=== PATIENT | female | born 1955 | race Caucasian/White ===

== ENCOUNTER 2017-02-25 16:42 | Observation (INO) | payer OTHER ==
[2017-02-25] VITALS (10 sets, daily range): BP systolic 95–138; BP diastolic 52–60; PULSE 71–82; RESP 18–20; TEMP 96.4–99.2; O2SAT 96–100
[~2017-02-25] VITALS: Ht 172.1 cm; Wt 78.4 kg
[~2017-02-25 16:42] MED LIST: ADDE20 PO; ASPI-110 PO; BACT400T PO; BIOT1SUB SL; CALC600T25; CHOL5000 PO; CINN500T PO; CIPR-9 PO; CO Q100C9; ESTR42.5V VAGINAL; LISI10TA3; LORA-373 PO; LOVA40TA PO; MISCCAP32 PO; MULTTAB6; OXYB5TAB10 PO; PANT40TA3 PO; TIMO0.5S30 LEFT EYE
--- NOTE | 2017-02-25 16:59 | PD ---
HPI Chief Complaint: Chest Pain Time Seen by Provider: 16:51 Travel History International Travel<30 days: No Contact w/Intl Traveler<30days: No Traveled to known affect area: No History of Present Illness HPI 61-year-old female complains of chest pain. Patient states the pain started about 2 and half hours prior coming to the emergency room. Patient states the pain is pressure pain substernally with radiation to the back. Patient states that she has nausea and diaphoresis and shortness of breath with the pain. Patient denies any coughing congestion fever chills. Patient states the pain is not a surgical with exertion. Patient denies any history of CAD. Patient states that she has 2. Episodic chest pain which lasted an hour for the past 2 weeks. Patient has history hypertension and hep lipedema. Patient denies history diabetes. Patient is a smoker. Patient has family history of heart disease. On a scale of 1-10 the pain is a 2 now. Patient take aspirin 81 mg daily. Patient did not take aspirin today yet. PFSH Past Medical History Anxiety: Yes Cancer: Yes (hx of breast cancer left side and cervical cancer) Cardiovascular Problems: Yes High Cholesterol: Yes Chemotherapy: Yes (10 yrs ago) Diabetes: Yes (diet controlled) Patient Takes Glucophage: No Diminished Hearing: No Endocrine: No Gastrointestinal Disorders: Yes (hx of irritated esophagus with nausea and vomiting,relfux) Glaucoma: Yes (LEFT EYE) Genitourinary: Yes (hx of small bladder tumor) Hepatitis: No Hiatal Hernia: No Hypertension: Yes Immune Disorder: No Medical other: Yes (chronic uti) Musculoskeletal: No Neurologic: No Psychiatric: No Reproductive: No Respiratory: No Thyroid Disease: No Influenza Vaccination: Yes ?: Not Menopausal: Yes Past Surgical History Abdominal Surgery: Yes (lap eveline) AICD: No Appendectomy: Yes Body Medical Devices: artificial right eye Cardiac Surgery: No Cholecystectomy: Yes Ear Surgery: No Endocrine Surgery: No Eye Surgery: Yes (right eye removal with prostatic eye placed) Genitourinary Surgery: Yes (bladder lift X2 with tumors removed) Gynecologic Surgery: Yes (left breast mastectomy hysterectomy) Hysterectomy: Yes Joint Replacement: No Oral Surgery: Yes (t and a sinusotomy) Pacemaker: No Thoracic Surgery: No Tonsillectomy: Yes (T & A) Other Surgery: Yes Social History Alcohol Use: Yes (SOCIALLY) Tobacco Use: Yes (10 CIGS /DAY) Substance Use: No Allergies-Medications (Allergen,Severity, Reaction): Coded Allergies: Rocephin (Verified Allergy, Severe, Anaphylaxis, 02/25/17) Reported Meds & Prescriptions Reported Meds & Active Scripts Active Reported Biotin 5,000 Mcg Tab.rapdis 5,000 Mcg SL DAILY Hm Cinnamon (Cinnamon) 500 Mg Cap 1,000 Mg PO HS Protonix (Pantoprazole Sodium) 40 Mg Tab 40 Mg PO DAILY Adderall (Amphetamine-Dextroamphetamine) 20 Mg Tab 40 Mg PO DAILY Avoid late evening doses. Space doses at least 4 to 6 hours if more than once/day dosing. Ditropan (Oxybutynin Chloride) 5 Mg Tab 10 Mg PO Q12HR Timolol Opth Drops 0.5 % Soln 1 Drop LEFT EYE BID Lorazepam 0.5 Mg Tab 0.5 Mg PO Q8H PRN Co Q 10 (Coenzyme Q10 (Ubidecarenone)) 100 Mg Cap Vitamin D3 (Cholecalciferol) 5,000 Unit Cap 8,000 Units PO DAILY Calcium (Calcium Carbonate) 600 Mg Tab Aspirin 81 (Aspirin) 81 Mg Tabdr 81 Mg PO DAILY Lisinopril 10 Mg Tab 20 Review of Systems General / Constitutional: No: Fever Eyes: No: Visual changes HENT: No: Headaches Cardiovascular: Positive: Chest Pain or Discomfort Respiratory: No: Shortness of Breath Gastrointestinal: No: Abdominal Pain Genitourinary: No: Dysuria Musculoskeletal: No: Pain Skin: No Rash Neurologic: No: Weakness Psychiatric: No: Depression Endocrine: No: Polydipsia Hematologic/Lymphatic: No: Easy Bruising Physical Exam Narrative GENERAL: Well-nourished, well-developed patient. SKIN: Focused skin assessment warm/dry. HEAD: Normocephalic. EYES: No scleral icterus. No injection or drainage. NECK: Supple, trachea midline. No JVD or lymphadenopathy. CARDIOVASCULAR: Regular rate and rhythm without murmurs, gallops, or rubs. RESPIRATORY: Breath sounds equal bilaterally. No accessory muscle use. GASTROINTESTINAL: Abdomen soft, non-tender, nondistended. MUSCULOSKELETAL: No cyanosis, or edema. BACK: Nontender without obvious deformity. No CVA tenderness. Neurologic exam normal. Data Data Last Documented VS Vital Signs Date Time Temp Pulse Resp B/P Pulse Ox O2 Delivery O2 Flow Rate FiO2 02/25/17 17:04 78 18 119/53 97 Room Air 02/25/17 16:45 99.2 Orders Electrocardiogram (02/25/17 16:51) Complete Blood Count With Diff (02/25/17 16:51) Comprehensive Metabolic Panel (02/25/17 16:51) Creatine Kinase (Cpk) (02/25/17 16:51) Troponin I (02/25/17 16:51) Prothrombin Time / Inr (Pt) (02/25/17 16:51) Act Partial Throm Time (Ptt) (02/25/17 16:51) D-Dimer (02/25/17 16:51) Chest, Single Ap (02/25/17 16:51) Iv Access Insert/Monitor (02/25/17 16:51) Ecg Monitoring (02/25/17 16:51) Oximetry (02/25/17 16:51) Ct Pulmonary Angiogram (02/25/17 16:51) Aspirin (Aspirin) (02/25/17 17:30) Sodium Chlor 0.9% 1000 Ml Inj (Ns 1000 M (02/25/17 18:00) Iohexol 350 Inj (Omnipaque 350 Inj) (02/25/17 17:55) Admit Order (Ed Use Only) (02/25/17 18:18) Labs Laboratory Tests Test 02/25/17 16:50 White Blood Count 9.1 TH/MM3 Red Blood Count 4.29 MIL/MM3 Hemoglobin 12.9 GM/DL Hematocrit 38.2 % Mean Corpuscular Volume 89.0 FL Mean Corpuscular Hemoglobin 30.0 PG Mean Corpuscular Hemoglobin 33.7 % Concent Red Cell Distribution Width 12.7 % Platelet Count 443 TH/MM3 Mean Platelet Volume 7.9 FL Neutrophils (%) (Auto) 87.2 % Lymphocytes (%) (Auto) 7.7 % Monocytes (%) (Auto) 3.5 % Eosinophils (%) (Auto) 1.2 % Basophils (%) (Auto) 0.4 % Neutrophils # (Auto) 8.0 TH/MM3 Lymphocytes # (Auto) 0.7 TH/MM3 Monocytes # (Auto) 0.3 TH/MM3 Eosinophils # (Auto) 0.1 TH/MM3 Basophils # (Auto) 0.0 TH/MM3 CBC Comment DIFF FINAL Differential Comment Prothrombin Time 10.0 SEC Prothromb Time International 0.9 RATIO Ratio Activated Partial 23.1 SEC Thromboplast Time D-Dimer Quantitative (PE/DVT) 0.51 MG/L FEU Sodium Level 134 MEQ/L Potassium Level 3.9 MEQ/L Chloride Level 98 MEQ/L Carbon Dioxide Level 26.2 MEQ/L Anion Gap 10 MEQ/L Blood Urea Nitrogen 16 MG/DL Creatinine 0.70 MG/DL Estimat Glomerular Filtration 85 ML/MIN Rate Random Glucose 102 MG/DL Calcium Level 8.8 MG/DL Total Bilirubin 0.3 MG/DL Aspartate Amino Transf 54 U/L (AST/SGOT) Alanine Aminotransferase 66 U/L (ALT/SGPT) Alkaline Phosphatase 104 U/L Total Creatine Kinase 22 U/L Troponin I LESS THAN 0.02 NG/ML Total Protein 7.1 GM/DL Albumin 3.7 GM/DL [facility] Medical Decision Making Medical Screen Exam Complete: Yes Emergency Medical Condition: Yes Interpretation(s) 1658 PM. EKG shows sinus rhythm nonspecific ST-T wave change. Last Impressions Chest X-Ray 02/25/17 1651 Signed Impressions: Service Date/Time: February 17:16 - CONCLUSION: 1. No active disease. Surgical clips left axillary region. Himanshu Kang MD 1746 PM. CBC within normal limit. CMP within normal limit. AST 54. ALT 66. Cardiac enzymes are normal. D-dimer 0.51. [address] pulmonary angiogram negative for acute process. Differential Diagnosis Differential diagnosis including angina, ME, PE, pneumothorax. Narrative Course 61-year-old female with substernal chest pain. Diagnosis Primary Impression: Chest pain Qualified Code: R07.9 - Chest pain, unspecified type Dhaval Tirado MD February 25, 2017 16:58
[2017-02-25] MEDS ORDERED: PROT40TA PO (17:02)
[2017-02-25] MEDS ORDERED: BIOT50006 SL (17:04)
[2017-02-25] MEDS ORDERED: CINN500C12 PO (17:04)
[2017-02-25 17:12] LABS: CHLORIDE 98 MEQ/L (98-107); POTASSIUM 3.9 MEQ/L (3.5-5.1); SODIUM (NA) 134 MEQ/L (136-145)
[2017-02-25 17:16] LABS: ANION GAP 10 MEQ/L (5-15); BICARBONATE 26.2 MEQ/L (21.0-32.0); BLOOD UREA NITROGEN 16 MG/DL (7-18)
[2017-02-25 17:19] LABS: ALT (GPT) 66 U/L (10-53); AST (GOT) 54 U/L (15-37); BASOPHIL % 0.4 % (0.0-2.0); EOSINOPHIL # 0.1 TH/MM3 (0-0.4); EOSINOPHIL % 1.2 % (0.0-4.0); HEMATOCRIT 38.2 % (35.0-46.0); HEMO FLAGS DIFF FINAL; LYMPH % 7.7 % (9.0-44.0); LYMPHOCYTE # 0.7 TH/MM3 (1.0-4.8); MEAN CORPUSCULAR HGB CONC 33.7 % (32.0-36.0); MONO % 3.5 % (0.0-8.0); NEUT % 87.2 % (16.0-70.0); PLATELET COUNT 443 TH/MM3 (150-450); RED BLOOD COUNT 4.29 MIL/MM3 (4.00-5.30); RED CELL DISTRIBUTION WIDTH 12.7 % (11.6-17.2); WHITE BLOOD COUNT 9.1 TH/MM3 (4.0-11.0)
[2017-02-25 17:20] LABS: APTT (PATIENT) 23.1 SEC (24.3-30.1); GLOMERULAR FILTRATION RATE 85 ML/MIN (>89); INTERNATIONAL NORMALIZED RATIO 0.9 RATIO
[2017-02-25 17:21] LABS: TOTAL BILIRUBIN ADULT 0.3 MG/DL (0.2-1.0)
[2017-02-25 17:22] LABS: ALKALINE PHOSPHATASE 104 U/L (45-117)
--- NOTE | 2017-02-25 17:25 | RADHPO ---
EXAM DATE/TIME: 02/25/2017 17:16 [facility] COMPARISON: No previous studies available for comparison. INDICATIONS : Patient states she had chest pain this afternoon. MEDICAL HISTORY : None. SURGICAL HISTORY : None. ENCOUNTER: Initial ACUITY: 1 day PAIN SCORE: 4/10 LOCATION: Bilateral chest FINDINGS: A single view of the chest demonstrates the lungs to be symmetrically aerated without evidence of mas s, infiltrate or effusion. The cardiomediastinal contours are unremarkable. Osseous structures are intact. CONCLUSION: 1. No active disease. Surgical clips left axillary region. Himanshu Kang MD on February 25, 2017 at 17:23 Board Certified Radiologist. This report was verified electronically.
[2017-02-25 17:28] LABS: CREATINE KINASE 22 U/L (26-192)
[2017-02-25] MEDS ORDERED: ASPIRIN 325 MG TAB PO ONE (17:30)
[2017-02-25] MEDS ORDERED: IOHEXOL 350 MG/ML 10 ML VIAL (for RAD DIAG) IV ONE (17:55)
[2017-02-25] MEDS ORDERED: SODIUM CHLOR 0.9% 1000 ML INJ 1,000 ML IV ONE (18:00)
--- NOTE | 2017-02-25 18:07 | RADHPO ---
EXAM DATE/TIME: 02/25/2017 17:34 [facility] COMPARISON: No previous studies available for comparison. INDICATIONS : Substernal chest pain that radiates to back, shortness of breath. IV CONTRAST: 73 cc Omnipaque 350 (iohexol) IV RADIATION DOSE: 11.23 CTDIvol (mGy) MEDICAL HISTORY : Carcinoma, breast. Gastroesophageal reflux disease. Hypertension.Cervical cancer. SURGICAL HISTORY : Mastectomy, left. Cholecystectomy.Hysterectomy.Bladder surgery. ENCOUNTER: Initial ACUITY: 1 day PAIN SCALE: 5/10 LOCATION: substernal. TECHNIQUE: Volumetric scanning of the chest was performed using a pulmonary embolism protocol MIP images were re constructed. Using automated exposure control and adjustment of the mA and/or kV according to patien t size, radiation dose was kept as low as reasonably achievable to obtain optimal diagnostic quality images. FINDINGS: PULMONARY ARTERIES: No filling defects are seen in the pulmonary arteries through the segmental level. LUNGS: There is small focus of reticular infiltrate in the right upper lobe. PLEURAE: There is no pleural thickening or pleural effusion. MEDIASTINUM: There is good visualization of the great vessels of the middle mediastinum. No evidence of mediastin al or hilar adenopathy/mass. MUSCULOSKELETAL: Within normal limits for patient age. MISCELLANEOUS: The visualized upper abdominal organs demonstrate no acute abnormality. CONCLUSION: No evidence of pulmonary embolism. Payam Castañeda MD on February 25, 2017 at 18:02 Board Certified Radiologist. This report was verified electronically.
[2017-02-25] MEDS ORDERED: ACETAMINOPHEN 500 MG CPLT PO PRN (18:30)
[2017-02-25] MEDS ORDERED: ONDANSETRON HCL 4 MG/2 ML VIAL IV PUSH ONE (18:30)
[2017-02-25] MEDS ORDERED: SODIUM CHLORIDE 0.9% FLUSH 10 ML FLUSH IV FLUSH PRN (18:30)
[2017-02-25] MEDS ORDERED: ONDANSETRON HCL 4 MG/2 ML VIAL IV PRN (18:30)
[2017-02-25] MEDS ORDERED: MORPHINE SULFATE 4 MG/ML INJ IV PUSH ONE ×2 (18:30→21:00)
[2017-02-25 20:37] LABS: CREATINE KINASE 19 U/L (26-192)
[2017-02-25] MEDS: SODIUM CHLORIDE 0.9% FLUSH 10 ML FLUSH IV FLUSH SCH (21:00)
[2017-02-25] MEDS ORDERED: PANTOPRAZOLE SODIUM 40 MG VIAL IV PUSH ONE (21:00)
[2017-02-26] VITALS (7 sets, daily range): BP systolic 94–163; BP diastolic 43–79; PULSE 57–73; RESP 20; TEMP 97.4–98.2; O2SAT 96–100
[2017-02-26] MEDS ORDERED: SODIUM CHLOR 0.9% 1000 ML INJ 1,000 ML IV SCH
[2017-02-26] MEDS ORDERED: LORazepam 0.5 MG TAB PO ONE (00:30)
[2017-02-26] MEDS ORDERED: ALUMINUM/MAGNESIUM/SIMETH 30 ML CUP PO PRN (00:45)
[2017-02-26 01:00] LABS: CREATINE KINASE 16 U/L (26-192)
[2017-02-26] MEDS: MORPHINE SULFATE 4 MG/ML INJ IV PUSH PRN ×2 (01:02→08:58)
--- NOTE | 2017-02-26 07:51 | HHI.HP ---
[facility] Alison Bejarano MD Admission Diagnosis chest pain Diagnoses: (1) Chest pain Diagnosis: Principal (2) Hypertension Diagnosis: Secondary (3) Hyperlipidemia Diagnosis: Secondary (4) Diabetes Diagnosis: Secondary Travel History International Travel<30 Days: No Contact w/Intl Traveler <30 Da: No Traveled to Known Affected Are: No History of Present Illness Written by Michael Liang, acting as scribe for Dr. Douglas on 02/26/17 at 07: 44. 61-year-old female with known history of hypertension, hyperlipidemia , diet-controlled diabetes, history of breast cancer, history of bladder cancer , adult attention deficit disorder who presented to hospital because of chest discomfort. Patient indicates that she's been experiencing this discomfort for a few days now. She states that the discomfort is a pain scale of 8/10 on a pain scale that starts in the midsternal part of her chest radiating into her right scapular region. She indicates the pain can last anywhere from 2 minutes to 20 minutes. She states that sometimes the pain feels like there is something stuck in her mid sternal region and she gets an episode of nausea and vomiting and after she vomits the pain goes away. Episodic diaphoresis. Increased fatigue. Denies any shortness of breath, dyspnea, lightheadedness, dizziness. 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 Patient was evaluated by emergency physician and recommended observation in the chest pain center. Review of Systems Constitutional: DENIES: Diaphoretic episodes, Fatigue, Fever, Weight gain, Weight loss, Chills, Dizziness, Change in appetite, Night Sweats Eyes: COMPLAINS OF: Vision loss (right eye), DENIES: Blurred vision, Diplopia , Eye inflammation, Eye pain, Double Vision Ears, nose, mouth, throat: DENIES: Vertigo, Nasal discharge, Throat pain, Ear Pain, Running Nose, Sinus Pain Respiratory: DENIES: Apneas, Cough, Snoring, Wheezing, Hemoptysis, Sputum production, Shortness of breath Cardiovascular: COMPLAINS OF: Chest pain, DENIES: Palpitations, Syncope, Dyspnea on Exertion, Lower Extremity Edema, Orthopnea Gastrointestinal: COMPLAINS OF: Nausea, Vomiting, DENIES: Abdominal pain, Black stools, Bloody stools, Constipation, Diarrhea, Difficulty Swallowing, Anorexia Neurologic: DENIES: Abnormal gait, Headache, Localized weakness, Paresthesias, Seizures, Speech Problems, Tremor, Poor Balance Past Family Social History Past Medical History Hypertension Hyperlipidemia Diabetes History of bladder cancer History of breast cancer Glaucoma Anxiety Tobacco use Adult attention deficit disorder Past Surgical History Tonsillectomy Right eye removal with prosthetic Appendectomy Cholecystectomy Mastectomy Hysterectomy Bladder surgery TURBT Reported Medications Reported Meds & Active Scripts Active Reported Biotin 5,000 Mcg Tab.rapdis 5,000 Mcg SL DAILY Hm Cinnamon (Cinnamon) 500 Mg Cap 1,000 Mg PO HS Protonix (Pantoprazole Sodium) 40 Mg Tab 40 Mg PO DAILY Adderall (Amphetamine-Dextroamphetamine) 20 Mg Tab 40 Mg PO DAILY Avoid late evening doses. Space doses at least 4 to 6 hours if more than once/day dosing. Ditropan (Oxybutynin Chloride) 5 Mg Tab 10 Mg PO Q12HR Timolol Opth Drops 0.5 % Soln 1 Drop LEFT EYE BID Lorazepam 0.5 Mg Tab 0.5 Mg PO Q8H PRN Co Q 10 (Coenzyme Q10 (Ubidecarenone)) 100 Mg Cap Vitamin D3 (Cholecalciferol) 5,000 Unit Cap 8,000 Units PO DAILY Calcium (Calcium Carbonate) 600 Mg Tab Aspirin 81 (Aspirin) 81 Mg Tabdr 81 Mg PO DAILY Lisinopril 10 Mg Tab 20 Allergies: Coded Allergies: Rocephin (Verified Allergy, Severe, Anaphylaxis, 02/25/17) Family History Reviewed is significant for mother having coronary artery disease requiring stenting. Father from small cell carcinoma, mother from non- small cell carcinoma Social History Patient does continues smoke periodically. Proximal to 10 cigarettes a week. She has been smoking since she was 20 years old. She does drink alcohol probably one sixpack of beer a week. Denies any illicit drugs Physical Exam Vital Signs Vital Signs Date Time Temp Pulse Resp B/P Pulse Ox O2 Delivery O2 Flow Rate FiO2 02/25/17 23:45 96 02/25/17 23:15 96.4 71 20 105/55 99 5/25/17 23:14 71 02/25/17 23:00 82 20 110/58 96 02/25/17 21:00 72 20 95/52 98 02/25/17 20:15 20 99 02/25/17 20:00 77 20 114/55 96 02/25/17 18:58 100 02/25/17 18:51 18 02/25/17 18:20 82 18 128/59 100 Room Air 02/25/17 18:20 85 02/25/17 17:04 78 18 119/53 97 Room Air 02/25/17 16:50 79 100 Room Air 02/25/17 16:45 99.2 79 18 138/60 100 Physical Exam GENERAL: Well-developed, well-nourished, in no acute distress. alert and orientated HEENT: Head is normocephalic without any lesions or masses noted. Facial features are symmetric. Eyes: Left Pupil equal round reactive to light. Left pectoralis muscle is intact. There is still movement in the right eye prosthesis. Conjunctivae were clear. Oropharyngeal: Pharynx without any erythema edema. Tongue is midline without deviation. Buccal mucosa is moist without any masses or lesions NECK: Supple without any masses. Trachea midline no deviation. No JVD, no bruits are appreciated CARDIAC: Regular rhythm, regular rate. S1/S2 are heard. No murmurs gallops or rubs. LUNGS: Clear to auscultation bilaterally. No wheeze, rhonchi or rales. No use of accessory muscles on inspiration or expiration. ABDOMEN: Soft, nontender. Nondistended. Bowel sounds heard in all 4 quadrants. No organomegaly or masses. Negative rebound, negative guarding EXTREMITIES: No edema, pulses are equal bilaterally. No cyanosis or clubbing NEUROLOGY: Mood and affect appear appropriate. Cranial nerves II through XII grossly intact. Muscle strength 5/5 in upper and lower extremities bilaterally. Deep tendon reflexes are 2+ in upper and lower extremities bilaterally. Laboratory Laboratory Tests Test 02/25/17 02/25/17 02/26/17 16:50 20:00 00:21 White Blood Count 9.1 Red Blood Count 4.29 Hemoglobin 12.9 Hematocrit 38.2 Mean Corpuscular Volume 89.0 Mean Corpuscular Hemoglobin 30.0 Mean Corpuscular Hemoglobin 33.7 Concent Red Cell Distribution Width 12.7 Platelet Count 443 Mean Platelet Volume 7.9 Neutrophils (%) (Auto) 87.2 Lymphocytes (%) (Auto) 7.7 Monocytes (%) (Auto) 3.5 Eosinophils (%) (Auto) 1.2 Basophils (%) (Auto) 0.4 Neutrophils # (Auto) 8.0 Lymphocytes # (Auto) 0.7 Monocytes # (Auto) 0.3 Eosinophils # (Auto) 0.1 Basophils # (Auto) 0.0 CBC Comment DIFF FINAL Differential Comment Prothrombin Time 10.0 Prothromb Time International 0.9 Ratio Activated Partial 23.1 Thromboplast Time D-Dimer Quantitative (PE/DVT) 0.51 Sodium Level 134 Potassium Level 3.9 Chloride Level 98 Carbon Dioxide Level 26.2 Anion Gap 10 Blood Urea Nitrogen 16 Creatinine 0.70 Estimat Glomerular Filtration 85 Rate Random Glucose 102 Calcium Level 8.8 Total Bilirubin 0.3 Aspartate Amino Transf 54 (AST/SGOT) Alanine Aminotransferase 66 (ALT/SGPT) Alkaline Phosphatase 104 Total Creatine Kinase 22 19 16 Troponin I LESS THAN 0.02 LESS THAN 0.02 LESS THAN 0.02 Total Protein 7.1 Albumin 3.7 Result Diagram: 02/25/17164902/25/171649 Imaging Last Impressions Chest X-Ray 02/25/171650 Signed Impressions: Service Date/Time: February 17:16 - CONCLUSION: 1. No active disease. Surgical clips left axillary region. Himanshu Kang MD CT Angiography 02/25/171650 Signed Impressions: Service Date/Time: February 17:34 - CONCLUSION: No evidence of pulmonary embolism. Payam Castañeda MD Assessment and Plan Assessment and Plan Chest pain Patient with increased risk factors to include age, hypertension, hyperlipidemia, diabetes, tobacco use, family history heart disease Patient had been ruled out for acute coronary event with serial cardiac enzymes which are negative Serial EKG shows sinus rhythm without any changes We'll pursue stress test rule out any underlying ischemia Continue aspirin, oxygen, Continue telemetry Hypertension Patient blood pressure is on the low side at this time We will hold blood pressure medication Diabetes, diet controlled We'll resume diabetic diet after stress testing DVT prevention Low risk, early ambulation Discharge disposition Discharge home in stable condition Activity: Ad yonis. Diet: Healthy heart/diabetic diet Medications per medication reconciliation Follow-up primary medical doctor in one week Discussed Condition With This note was transcribed by [email or web address] Liang. I, Dr. Clyde Douglas personally performed the history, physical exam, and medical decision making; and confirmed the accuracy of the information in the transcribed note. Authenticated by Dr. Clyde oDuglas on 02/26/17 at 13:10. Problem Qualifiers (1) Chest pain: Qualified Code: R07.9 - Chest pain, unspecified type (2) Hypertension: Qualified Code: I15.9 - Secondary hypertension (3) Hyperlipidemia: Qualified Code: E78.5 - Hyperlipidemia, unspecified hyperlipidemia type (4) Diabetes: Qualified Code: E11.8 - Type 2 diabetes mellitus with complication, without long-term current use of insulin Michael Liang February 26, 2017 07:51 Clyde Douglas DO February 26, 2017 13:10
[2017-02-26] MEDS ORDERED: LORazepam 0.5 MG TAB PO PRN (08:00)
[2017-02-26] MEDS: SODIUM CHLORIDE 0.9% FLUSH 10 ML FLUSH IV FLUSH SCH (08:59)
[2017-02-26] MEDS ORDERED: PANTOPRAZOLE SOD 40 MG DELAYED RELEASE TAB PO SCH (09:00)
[2017-02-26] MEDS ORDERED: TIMOLOL MALEATE 0.5% OPHT SOLN 5 ML BTL LEFT EYE SCH (09:00)
[2017-02-26] MEDS ORDERED: ASPIRIN EC 81 MG TABEC PO SCH (09:00)
--- NOTE | 2017-02-26 12:27 | HHI.DCPOC ---
Discharge Care Plan Diagnosis: (1) Chest pain Goals to Promote Your Health * To prevent worsening of your condition and complications * To maintain your health at the optimal level Directions to Meet Your Goals Take your medications as prescribed Follow your dietary instruction Follow activity as directed Keep your appointments as scheduled Take your immunizations and boosters as scheduled If your symptoms worsen call your PCP, if no PCP go to Urgent Care Center or Emergency Room Smoking is Dangerous to Your Health. Avoid second hand smoke Call the 24-hour hour crisis hotline for domestic abuse at Michael Liang February 26, 2017 12:27
--- NOTE | 2017-02-26 12:49 | EKG ---
Date Performed: 02/25/2017 Time Performed: 23:54:32 PTAGE: 61 years EKG: Sinus rhythm . Low QRS voltages in precordial leads Borderline ECG NO PREVIOUS TRACING DOCTOR: Chucho Jones Interpretating Date/Time 02/26/2017 12:49:12
--- NOTE | 2017-02-26 12:50 | EKG ---
Date Performed: 02/25/2017 Time Performed: 20:07:18 PTAGE: 61 years EKG: Sinus rhythm Low QRS voltages in precordial leads Borderline ECG PREVIOUS TRACING : 02/25/2017 16.39 Since previous tracing, no significant change noted DOCTOR: Chucho Jones Interpretating Date/Time 02/26/2017 12:50:04
--- NOTE | 2017-02-26 12:52 | EKG ---
Date Performed: 02/25/2017 Time Performed: 16:39:36 PTAGE: 61 years EKG: Sinus rhythm Possible left atrial abnormality Low QRS voltages in precordial leads Borderline ECG PREVIOUS TRACING : 09/16/2010 09.51 Since previous tracing, no significant change noted DOCTOR: Chucho Jones Interpretating Date/Time 02/26/2017 12:51:07
--- NOTE | 2017-02-26 12:58 | TR ---
Date Performed: 02/26/2017 Time Performed: 11:29:03 DOCTOR: Chucho Jones DRUG LIST: CLINICAL HISTORY: REASON FOR TEST: Chest pain REASON FOR ENDING: Fatigue OBSERVATION: Arrhythmia: None Chest Pain: None CONCLUSION: Patient performed ADAMA protocol withTotal Exercise Time=10:04 Maximum EW=716 % Max HR Achieved=77.0% Maximum MJ=361/80, Testing stopped secondary to fatigue. was unable to acheive targ et HR even with adjusting protocol. During peak exercise patient was asymptomatic, quick upsloping ST segment. HR and BP apropriate respinse to exercise. Recovery period, HR and BP returned to baeseline COMMENTS: Patient exercised using the Adama protocol. No electrocardiographic changes were seen to suggest ischemia. Hemodynamic response to exercise was normal. No significant arrhythmia was prese nt.
[2017-02-26] MEDS ORDERED: CINNAMON 1000 MG PO SCH (21:00)
== END 2017-02-26 13:00 | disposition home or self-care (01) ==
LOC: PHED 16:42 → PHEDA 18:19 → PHEDH 22:21 → PH3B 23:08
PROVIDERS: ADMIT Hospitalist; ATTEND Hospitalist
DX: R07.89 Other chest pain (principal); R61 Generalized hyperhidrosis; R11.2 Nausea with vomiting, unspecified; I10 Essential (primary) hypertension; E11.9 Type 2 diabetes mellitus without complications; E78.5 Hyperlipidemia, unspecified; H40.9 Unspecified glaucoma; F41.9 Anxiety disorder, unspecified; Z85.3 Personal history of malignant neoplasm of breast; Z82.49 Family history of ischemic heart disease and other diseases of the circulatory system; F17.200 Nicotine dependence, unspecified, uncomplicated; Z85.41 Personal history of malignant neoplasm of cervix uteri; E78.00 Pure hypercholesterolemia, unspecified; Z85.51 Personal history of malignant neoplasm of bladder
CPT/HCPCS: 71010; 71275; 80053; 82550; 84484; 85025; 85379; 85610; 85730; 93005; 93017; 99285; C9113; G0378; J2270; J2405; J7030; Q9967

== ENCOUNTER → 2017-03-08 | Day surgery (SDC) | payer OTHER ==
--- NOTE | 2017-03-05 10:29 | TH ---
cc: PHUONG BOTELLO M.D. DATE: DATE OF : 1955 PROCEDURE TO BE PERFORMED Left breast reconstruction and revision including the removal and replacement of current implant, inferior capsulorrhaphies, reposition of the breast latissimus dorsi, fat injections, as well as re-augmentation. The right breast is going to undergo a circumvertical matching mastopexy. HISTORY OF PRESENT ILLNESS This is a 60-year-old female who underwent breast reconstruction back in July of last year. The patient had a complication that required a latissimus dorsi flap in November of this current year. She is ready to have some areas re-addressed due to significant asymmetry and deformity. PAST MEDICAL HISTORY 1. Borderline diabetes. 2. Chronic UTI. 3. High cholesterol. 4. Glaucoma. 5. 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 6. Cholecystectomy in 2002. 7. Hysterectomy in 2004. 8. Tonsillectomy and adenoidectomy as a child. 9. Appendectomy as a teenager. 10. Retropubic suspension of the bladder in the past as well. MEDICATIONS 1. Oxybutynin. 2. Pantoprazole. 3. Lisinopril. 4. Sulfamethoxazole. 5. . 6. Adderall. 7. Lorazepam. 8. Calcium and vitamin-D3. 9. Multivitamins. 10. CoQ10. 11. Cinnamon. 12. Biotin. 13. [place]-3. ALLERGIES 1. ROCEPHIN. 2. GEODON. SOCIAL HISTORY Unremarkable. PHYSICAL EXAMINATION GENERAL APPEARANCE: The patient is a well-developed female in no acute distress. Body habitus is within normal limits. There appear to be no deformities. Appears to have attention to grooming. HEENT: Conjunctiva and lids are within normal anatomical limits. The pupils are reactive to light and accommodation, size and symmetry. There is no evidence of exudate, hemorrhage, or vessel change. The external inspection of the ears and nose fails to demonstrate any pathology, scars, lesions, or masses. Nasal mucosa, septum, and turbinates appear to be well-hydrated as well as the lips and gums. No evidence of masses in the hypopharynx or submental area. CHEST: The patient shows no evidence of intercostal retractions. LUNGS: Clear to auscultation without any abnormal sounds or rubs. CARDIOVASCULAR: The patient has a normal heart rate and rhythm. There is no evidence of noted carotid bruits. Femoral pulses and pedal pulses in the extremities are also within normal limits. ABDOMEN: Soft with no evidence of masses or tenderness. Unable to palpate the liver or spleen. No evidence of hernia. MUSCULOSKELETAL: Appears to be reasonable range of motion of the head, neck, spine, ribs, pelvis, right upper extremity, left upper extremity, right lower extremity, and left lower extremity. The muscle strength and tone appears to be equal and within accepted limits. SKIN: There are no rashes, lesions, or ulcers on the trunk, back or extremities. NEUROLOGICAL: Examination is grossly normal. PSYCHIATRIC: The patient appears to have good orientation of time, place, and person. Does not appear to have any mood affects of depression, anxiety, or agitation. PLAN As above. MD XAVIER Serna/CHA /9:25 AM /10:19 AM
[~2017-03-08] MED LIST changes: +ACETAMINOPHEN 1000 MG/100 ML VIAL IV ONE; +ACETAMINOPHEN/HYDROcodone 325 MG/5 MG TAB ONE; +BACITRACIN IM FOR SOLN 50,000 UNIT VIAL ONE; -BACT400T PO; -BIOT1SUB SL; +BIOT50006 SL; +BUPIVACAINE/EPINEPHRINE 0.25% 50 ML VIAL ONE; +CINN500C12 PO; -CINN500T PO; -CIPR-9 PO; -ESTR42.5V VAGINAL; +GENTAMICIN SULFATE 80 MG/2 ML VIAL ONE; +KETOROLAC TROMETHAMINE 30 MG/ML (IVP) VIAL IV PUSH ONE; +LACTATED RINGER'S 1000 ML INJ 1,000 ML ONE; +LIDOCAINE 1%/EPINEPHrine 1:100,000 SOLN 20 ML VIAL ONE; -LOVA40TA PO; +MEPERIDINE HCL 25 MG/ML VIAL ONE; +MIDAZOLAM HCL 2 MG/2 ML VIAL ONE; -MISCCAP32 PO; -MULTTAB6; +ONDANSETRON HCL 4 MG/2 ML VIAL IV PUSH ONE; -PANT40TA3 PO; +PROPOFOL 200 MG/20 ML AMP IV ONE; +PROT40TA PO; +SODIUM CHLOR 0.9% 250 ML INJ 250 ML IV ONE; +SODIUM CHLORIDE 0.9% 20 ML VIAL ONE; +VANCOMYCIN HCL 1000 MG VIAL ONE; +ceFAZolin INJ 1,000 MG VIAL ONE
--- NOTE | 2017-03-08 09:47 | TN ---
cc: SAROJ CASH M.D. DATE OF SURGERY 03/08/2017 PREOPERATIVE DIAGNOSES 1. Status post left mastectomy with further reconstruction including latissimus dorsi that lead into shifting and deformity and asymmetry. 2. Ptotic right breast. 3. Changing lesion located on the center of the chest of about 2 cm. PROCEDURE 1. Revision reconstruction of the left breast including removal, replacement of implant due to internal finding rupture. Style 410 MX, volume 550, serial number [id number], placement of fat injections on the upper medial pole, lateral inferior capsulorrhaphies and flap revision. 2. Circumvertical mastopexy of the right breast. 3. Destruction and curettage of a vascular irritating lesion located on the right side of the chest, 2 cm in diameter. SURGEON Saroj Cash MD ANESTHESIA LMA general. ESTIMATED BLOOD LOSS Minimal. COMPLICATIONS None. PROCEDURE She was properly consented, marked, anesthetized, the skin sterilized with Betadine solution, sterile draping applied. Also utilized a total of 40 cc of 1% lidocaine and epinephrine in the areas including both breast frames as well as the abdomen. Out attention was directed to the left breast. Through a trapdoor incision the implant was removed. It was found that it had a rupture and therefore a new implant was introduced. The above volume and serial number has been described. Lateral inferior capsulorrhaphies were done utilizing 0-silk after copious irrigation with normal saline and antibiotic solution. I also have revised the excess of flap skin in order to smooth the area. Before reaugmenting, I harvested approximately 120 cc of fat suitable for injection of about 40. Those were placed in the upper inner quadrant of the left breast. I utilized blunt, small needles. The implant was introduced. The wounds was closed in multiple 2-0 Monocryl suture layers in this capsule, dermis and subcu. At this point attention was directed to the right breast where the patient was sat up. Tailor tack technique was done to best set the envelope. This was properly marked, the skin was deepithelialized and the vertical/horizontal component was closed utilizing 2-0 Monocryl suture, where as the NAC was set in a new anatomical position utilizing 2-0 PTFE in a pinwheel fashion and reinforced with 2-0 Quill. Prineo Dermabond was utilized for all the wounds and absorbent dressings and after that a snug brassiere. Destruction and curettage of a vascular irritating lesion located on the right side of the chest, 2 cm in diameter. Overall the patient tolerated the procedure well. She was awakened, extubated in the operating room and transferred back to the postanesthesia care unit in stable condition. No complications were appreciated. The patient tolerated the procedure fairly well. MD XAVIER Serna/KEDAR /9:10 AM /9:40 AM CHARLENE
== END | disposition home or self-care (01) ==
LOC: ESDC 06:04
PROVIDERS: ATTEND Plastic Surgery
DX: Z85.3 Personal history of malignant neoplasm of breast (principal); N64.81 Ptosis of breast; Z90.12 Acquired absence of left breast and nipple; N65.0 Deformity of reconstructed breast; D18.01 Hemangioma of skin and subcutaneous tissue
CPT/HCPCS: 00400; 00402; 17106; 19316; 19380; C1789; J0131; J0690; J1580; J1885; J2175; J2250; J2405; J3010; J3370; J7050; J7120

== ENCOUNTER 2017-11-11 08:15 | Emergency (ER) | payer OTHER ==
[~2017-11-11] VITALS: Ht 170.2 cm; Wt 78.0 kg
[~2017-11-11 08:15] MED LIST changes: -ACETAMINOPHEN 1000 MG/100 ML VIAL IV ONE; -ACETAMINOPHEN/HYDROcodone 325 MG/5 MG TAB ONE; -ASPI-110 PO; +ASPI1TAB57 PO; -BACITRACIN IM FOR SOLN 50,000 UNIT VIAL ONE; +BACT800T5 PO; -BUPIVACAINE/EPINEPHRINE 0.25% 50 ML VIAL ONE; -CALC600T25; +CALC600T5; +CINN1CAP PO; -CINN500C12 PO; -GENTAMICIN SULFATE 80 MG/2 ML VIAL ONE; -KETOROLAC TROMETHAMINE 30 MG/ML (IVP) VIAL IV PUSH ONE; -LACTATED RINGER'S 1000 ML INJ 1,000 ML ONE; -LIDOCAINE 1%/EPINEPHrine 1:100,000 SOLN 20 ML VIAL ONE; -LORA-373 PO; +LORA0.5T PO; -MEPERIDINE HCL 25 MG/ML VIAL ONE; -MIDAZOLAM HCL 2 MG/2 ML VIAL ONE; -ONDANSETRON HCL 4 MG/2 ML VIAL IV PUSH ONE; -OXYB5TAB10 PO; +OXYB5TAB8 PO; -PROPOFOL 200 MG/20 ML AMP IV ONE; -SODIUM CHLOR 0.9% 250 ML INJ 250 ML IV ONE; -SODIUM CHLORIDE 0.9% 20 ML VIAL ONE; -VANCOMYCIN HCL 1000 MG VIAL ONE; -ceFAZolin INJ 1,000 MG VIAL ONE
[2017-11-11 08:19] VITALS: BP 143/59; PULSE 89; RESP 18; TEMP 99.1; O2SAT 95
--- NOTE | 2017-11-11 08:42 | PD ---
HPI Chief Complaint: Cold / Flu Symptoms Time Seen by Provider: 08:24 Travel History International Travel<30 days: No Contact w/Intl Traveler<30days: No Traveled to known affect area: No History of Present Illness HPI This 62-year-old female is been sick since yesterday morning. She is having a persistent cough. He is bringing up some whitish phlegm. She is having congestion. She's having a very bad headache she rates as a 10. The headache is somewhat diffuse frontal areas. Not sure if she's had a fever. Been taking Tylenol and Advil without any relief. PFSH Past Medical History Anxiety: Yes Cancer: Yes (hx of breast cancer left side and cervical cancer) Cardiovascular Problems: Yes High Cholesterol: Yes Chemotherapy: Yes (10 yrs ago) Diabetes: Yes (diet controlled) Diminished Hearing: No Endocrine: No Gastrointestinal Disorders: Yes (hx of irritated esophagus with nausea and vomiting,relfux) Glaucoma: Yes (LEFT EYE) Genitourinary: Yes (hx of small bladder tumor) Hepatitis: No Hiatal Hernia: No Hypertension: Yes Immune Disorder: No Musculoskeletal: No Neurologic: No Psychiatric: No Reproductive: No Respiratory: No Thyroid Disease: No Menopausal: Yes Past Surgical History Abdominal Surgery: Yes (lap eveline) AICD: No Appendectomy: Yes Body Medical Devices: artificial right eye Cardiac Surgery: No Cholecystectomy: Yes Ear Surgery: No Endocrine Surgery: No Eye Surgery: Yes (right eye removal with prostatic eye placed) Genitourinary Surgery: Yes (bladder lift X2 with tumors removed) Gynecologic Surgery: Yes (left breast mastectomy hysterectomy) Hysterectomy: Yes Joint Replacement: No Oral Surgery: Yes (t and a sinusotomy) Pacemaker: No Thoracic Surgery: No Tonsillectomy: Yes (T & A) Other Surgery: Yes Social History Alcohol Use: Yes (SOCIALLY) Tobacco Use: Yes (10 CIGS /DAY) Substance Use: No Allergies-Medications (Allergen,Severity, Reaction): Coded Allergies: ceftriaxone (Unverified Allergy, Severe, Anaphylaxis, 11/11/17) ziprasidone (Verified Allergy, Severe, tardive dyskynesia, 11/11/17) Reported Meds & Prescriptions Reported Meds & Active Scripts Active Tamiflu (Oseltamivir Phosphate) 75 Mg Cap 75 Mg PO BID 5 Days Bactrim DS (Sulfamethoxazole-Trimethoprim) 800-160 Mg Tab 1 Tab PO DAILY Reported Fenofibrate 145 Mg Tab 145 Mg PO DAILY Biotin 5,000 Mcg Tab.rapdis 5,000 Mcg SL DAILY Hm Cinnamon (Cinnamon) 500 Mg Cap 1,000 Mg PO HS Protonix (Pantoprazole Sodium) 40 Mg Tab 40 Mg PO DAILY Adderall (Amphetamine-Dextroamphetamine) 20 Mg Tab 30 Mg PO DAILY Avoid late evening doses. Space doses at least 4 to 6 hours if more than once/day dosing. Ditropan (Oxybutynin Chloride) 5 Mg Tab 10 Mg PO Q12HR Timolol Opth Drops 0.5 % Soln 1 Drop LEFT EYE BID Lorazepam 0.5 Mg Tab 0.5 Mg PO Q8H PRN Co Q 10 (Coenzyme Q10 (Ubidecarenone)) 100 Mg Cap Vitamin D3 (Cholecalciferol) 5,000 Unit Cap 8,000 Units PO DAILY Calcium (Calcium Carbonate) 600 Mg Tab Aspirin 81 (Aspirin) 81 Mg Tabdr 81 Mg PO DAILY Lisinopril 10 Mg Tab 20 DAILY Review of Systems General / Constitutional: Positive: Chills Eyes: No: Drainage HENT: Positive: Headaches, Rhinitis, No: Sore Throat Cardiovascular: No: Chest Pain or Discomfort Respiratory: Positive: Cough, Shortness of Breath Gastrointestinal: Positive: Nausea, No: Vomiting Genitourinary: No: Frequency Musculoskeletal: Positive: Myalgias Skin: No Rash, No Itching Neurologic: No: Weakness, Dizziness Hematologic/Lymphatic: No: Easy Bruising Physical Exam Narrative GENERAL: Well-developed female SKIN: Focused skin assessment warm/dry. HEAD: Atraumatic. Normocephalic. EYES: Pupils equal and round. No scleral icterus. No injection or drainage. ENT: No nasal bleeding Mucous membranes pink and moist. There is some nasal drainage. She is tender over the maxillary and frontal sinuses NECK: Trachea midline. No JVD. CARDIOVASCULAR: Regular rate and rhythm. No murmur appreciated. RESPIRATORY: No accessory muscle use. There are scattered rhonchi Breath sounds equal bilaterally. GASTROINTESTINAL: Abdomen soft, non-tender, nondistended. Hepatic and splenic margins not palpable. MUSCULOSKELETAL: No obvious deformities. No clubbing. No cyanosis. No edema. NEUROLOGICAL: Awake and alert. No obvious cranial nerve deficits. Motor grossly within normal limits. Normal speech. PSYCHIATRIC: Appropriate mood and affect; insight and judgment normal. Data Data Last Documented VS Vital Signs Date Time Temp Pulse Resp B/P (MAP) Pulse Ox O2 Delivery O2 Flow Rate FiO2 11/11/17 09:44 82 20 120/55 (76) 99 Room Air 11/11/17 08:19 99.1 Orders Orders Complete Blood Count With Diff (11/11/17 08:36) Basic Metabolic Panel (Bmp) (11/11/17 08:36) Influenzae A/B Antigen (11/11/17 08:36) Chest, Single Ap (11/11/17 08:36) Ct Brain W/O Iv Contrast(Rout) (11/11/17 08:36) Sodium Chlor 0.9% 1000 Ml Inj (Ns 1000 M (11/11/17 08:45) Ondansetron Inj (Zofran Inj) (11/11/17 08:45) Morphine Inj (Morphine Inj) (11/11/17 08:45) Acetaminophen (Tylenol) (11/11/17 09:00) Albuterol-Ipratropium Neb (Duoneb Neb) (11/11/17 09:15) Potassium Chloride (Kcl) (11/11/17 09:30) Morphine Inj (Morphine Inj) (11/11/17 09:30) Oseltamivir (Tamiflu) (11/11/17 09:45) Labs Laboratory Tests Test 11/11/17 08:54 White Blood Count 8.6 TH/MM3 Red Blood Count 4.34 MIL/MM3 Hemoglobin 12.7 GM/DL Hematocrit 37.7 % Mean Corpuscular Volume 86.7 FL Mean Corpuscular Hemoglobin 29.2 PG Mean Corpuscular Hemoglobin Concent 33.7 % Red Cell Distribution Width 12.1 % Platelet Count 302 TH/MM3 Mean Platelet Volume 8.4 FL Neutrophils (%) (Auto) 86.1 % Lymphocytes (%) (Auto) 7.2 % Monocytes (%) (Auto) 5.6 % Eosinophils (%) (Auto) 0.7 % Basophils (%) (Auto) 0.4 % Neutrophils # (Auto) 7.4 TH/MM3 Lymphocytes # (Auto) 0.6 TH/MM3 Monocytes # (Auto) 0.5 TH/MM3 Eosinophils # (Auto) 0.1 TH/MM3 Basophils # (Auto) 0.0 TH/MM3 CBC Comment DIFF FINAL Differential Comment Blood Urea Nitrogen 12 MG/DL Creatinine 1.00 MG/DL Random Glucose 172 MG/DL Calcium Level 8.9 MG/DL Sodium Level 133 MEQ/L Potassium Level 3.4 MEQ/L Chloride Level 102 MEQ/L Carbon Dioxide Level 22.3 MEQ/L Anion Gap 9 MEQ/L Estimat Glomerular Filtration Rate 56 ML/MIN MDM Medical Decision Making Medical Screen Exam Complete: Yes Emergency Medical Condition: Yes Medical Record Reviewed: Yes Differential Diagnosis Differential includes sinusitis, pneumonia, influenza Narrative Course Tests for influenza is negative. Because of the severity of headache a CT scan was done and has been read as negative. White count is 8000. Chest x-ray is negative. Diagnosis is influenza her symptoms started within 48 hours and she will be started on Tamiflu Diagnosis Primary Impression: Influenza A Scripts [phenergan w codeine] No Conflict Check 5-10 ML PO Q4-6H for cough for 7 Days Prov: Setf Carrasquillo MD 11/11/17 Ondansetron Odt (Zofran Odt) 4 Mg Tab 4 MG SL Q6HR Y for Nausea/Vomiting, #30 TAB 0 Refills Prov: Stef Carrasquillo MD 11/11/17 Albuterol 18 GM Inh (Ventolin Hfa 18 GM Inh) 90 Mcg/Act Aer 2 PUFF INH Q4H Y for SHORTNESS OF BREATH, #1 INHALER 0 Refills Prov: Stef Carrasquillo MD 11/11/17 Oseltamivir (Tamiflu) 75 Mg Cap 75 MG PO BID for Mgmt Viral Infection for 5 Days, #10 CAP 0 Refills Prov: Stef Carrasquillo MD 11/11/17 Disposition: 01 DISCHARGE HOME Condition: Stable Stef Carrasquillo MD Nov 11, 2017 08:42
[2017-11-11] MEDS ORDERED: MORPHINE SULFATE 4 MG/ML INJ IM ONE (08:45)
[2017-11-11] MEDS ORDERED: ONDANSETRON HCL 4 MG/2 ML VIAL IV PUSH ONE (08:45)
[2017-11-11] MEDS ORDERED: SODIUM CHLOR 0.9% 1000 ML INJ 1,000 ML IV ONE (08:45)
[2017-11-11] MEDS ORDERED: ACETAMINOPHEN 325 MG TAB PO ONE (09:00)
[2017-11-11 09:01] LABS: AUTOMATED NEUTROPHIL # 7.4 TH/MM3 (1.8-7.7); BASOPHIL % 0.4 % (0.0-2.0); EOSINOPHIL # 0.1 TH/MM3 (0-0.4); EOSINOPHIL % 0.7 % (0.0-4.0); HEMATOCRIT 37.7 % (35.0-46.0); HEMOGLOBIN 12.7 GM/DL (11.6-15.3); LYMPH % 7.2 % (9.0-44.0); LYMPHOCYTE # 0.6 TH/MM3 (1.0-4.8); MEAN CELL VOLUME 86.7 FL (80.0-100.0); MEAN CORPUSCULAR HEMOGLOBIN 29.2 PG (27.0-34.0); MEAN CORPUSCULAR HGB CONC 33.7 % (32.0-36.0); MEAN PLATELET VOLUME 8.4 FL (7.0-11.0); MONO % 5.6 % (0.0-8.0); MONOCYTE # 0.5 TH/MM3 (0-0.9); NEUT % 86.1 % (16.0-70.0); PLATELET COUNT 302 TH/MM3 (150-450); RED BLOOD COUNT 4.34 MIL/MM3 (4.00-5.30); RED CELL DISTRIBUTION WIDTH 12.1 % (11.6-17.2); WHITE BLOOD COUNT 8.6 TH/MM3 (4.0-11.0)
[2017-11-11] MEDS ORDERED: FENO145T2 PO (09:08)
--- NOTE | 2017-11-11 09:09 | RADRPT ---
EXAM DATE/TIME: 11/11/2017 08:59 [facility] COMPARISON: No previous studies available for comparison. INDICATIONS : Cephalgia. RADIATION DOSE: 62.03 CTDIvol (mGy) MEDICAL HISTORY : Carcinoma, breast. Diabetes mellitus type 2. Hypertension.Cervical cancer. SURGICAL HISTORY : Mastectomy, left. Hysterectomy.Appendectomy.Cholecystectomy. Bladder lift. Right eye implant. ENCOUNTER: Initial ACUITY: 2 days PAIN SCALE: 10/10 LOCATION: cranial TECHNIQUE: Multiple contiguous axial images were obtained of the head. Using automated exposure control and adj ustment of the mA and/or kV according to patient size, radiation dose was kept as low as reasonably a chievable to obtain optimal diagnostic quality images. DICOM format image data is available electro nically for review and comparison. FINDINGS: CEREBRUM: The ventricles are normal for age. No evidence of midline shift, mass lesion, hemorrhage or acute in farction. No extra-axial fluid collections are seen. POSTERIOR FOSSA: The cerebellum and brainstem are intact. The 4th ventricle is midline. The cerebellopontine angle i s unremarkable. EXTRACRANIAL: The visualized portion of the orbits is intact. SKULL: The calvaria is intact. No evidence of skull fracture. CONCLUSION: Normal examination. Payam Castañeda MD on November 11, 2017 at 9:05 Board Certified Radiologist. This report was verified electronically.
--- NOTE | 2017-11-11 09:11 | RADRPT ---
EXAM DATE/TIME: 11/11/2017 08:43 [facility] COMPARISON: CHEST SINGLE AP, February 25, 2017, 17:16. INDICATIONS : Cough, congestion, headaches since yesterday. MEDICAL HISTORY : Carcinoma, breast. Hypercholesterolemia. Hypertension. Smoker. Cervical CA. Chemotherapy. SURGICAL HISTORY : Cholecystectomy. Tonsillectomy. Mastectomy, left. Appendectomy. Right eye removed & prostatic placed. Hysterectomy. Bladder lift w/ tumor removal. ENCOUNTER: Initial ACUITY: 2 days PAIN SCORE: 0/10 LOCATION: chest FINDINGS: A single view of the chest demonstrates the lungs to be symmetrically aerated without evidence of mas s, infiltrate or effusion. There are mild chronic appearing interstitial changes. The cardiomediasti nal contours are unremarkable. Osseous structures are intact. CONCLUSION: 1. No acute cardiopulmonary findings. Farooq Munoz MD on November 11, 2017 at 9:08 Board Certified Radiologist. This report was verified electronically.
[2017-11-11] MEDS ORDERED: RESP: ALBUTEROL 2.5 MG/IPRATROPIUM 0.5 MG NEB (SCH) NEB ONE (09:15)
[2017-11-11 09:16] LABS: CALCIUM 8.9 MG/DL (8.5-10.1)
[2017-11-11 09:17] LABS: BICARBONATE 22.3 MEQ/L (21.0-32.0)
[2017-11-11] MEDS ORDERED: MORPHINE SULFATE 4 MG/ML INJ IV PUSH ONE ×2 (09:30→10:00)
[2017-11-11] MEDS ORDERED: POTASSIUM CHLORIDE 20 MEQ CONTROLLED RELEASE TAB PO ONE (09:30)
[2017-11-11] MEDS ORDERED: OSEL75 PO (09:38)
[2017-11-11 09:44] VITALS: BP 120/55; PULSE 82; RESP 20; O2SAT 99
[2017-11-11] MEDS ORDERED: OSELTAMIVIR PHOSPHATE 75 MG CAP PO ONE (09:45)
[2017-11-11] MEDS ORDERED: ZOFR4TAB3 SL (09:55)
[2017-11-11] MEDS ORDERED: VENTAER INH (09:55)
[2017-11-11] MEDS ORDERED: PHENERGAN W CODEINE PO (09:58)
[2017-11-11 10:30] VITALS: BP 99/55
== END 2017-11-11 10:38 | disposition home or self-care (01) ==
LOC: PHED 08:15
DX: J09.X2 Influenza due to identified novel influenza A virus with other respiratory manifestations (principal); E78.00 Pure hypercholesterolemia, unspecified; I10 Essential (primary) hypertension; E11.9 Type 2 diabetes mellitus without complications; F17.210 Nicotine dependence, cigarettes, uncomplicated; Z88.8 Allergy status to other drugs, medicaments and biological substances; Z85.3 Personal history of malignant neoplasm of breast; Z85.41 Personal history of malignant neoplasm of cervix uteri
CPT/HCPCS: 70450; 71045; 80048; 85025; 87804; 94664; 96361; 96374; 96375; 96376; 99285; J2270; J2405; J7030